=== PATIENT | female | born 1995 | race Caucasian/White ===

== ENCOUNTER 2016-12-05 23:31 | Outpatient (CLI) | payer MEDICAID ==
[~2016-12-05] VITALS: Ht 162.6 cm; Wt 87.0 kg
[~2016-12-05 23:31] MED LIST: PRENATAL 1+1)(P1 TAB PO; TUMS200 MG PO
[2016-12-06 02:35] LABS: BASOPHIL % 0.3 %; EOSINOPHIL # 0.4 K/uL (0.0-0.5); EOSINOPHIL % 3.9 %; HEMATOCRIT 34.8 % (33.0-46.0); HEMOGLOBIN 11.8 g/dL (11.0-15.0); IMMATURE GRANULOCYTE # 0.1 K/uL (0.0-0.3); IMMATURE GRANULOCYTE % 0.5 %; LYMPHOCYTE # 1.8 K/uL (0.8-4.0); LYMPHOCYTE % 16.1 %; MCH 30.2 pg (27.0-34.0); MCHC 33.9 gm/dL (32.0-36.5); NEUTROPHIL # (ANC) 7.9 K/uL (1.8-7.8); NEUTROPHIL % 70.2 %; NRBC % 0 /100WBC (0-0.00); PLATELET COUNT 251 K/uL (150-450); RBC 3.91 M/uL (3.50-5.00); RDW-CV 13.9 % (11.9-14.6); WBC 11.3 K/uL (4.0-11.0)
== END 2016-12-06 05:20 | disposition disaster alternative care site (69) ==
LOC: GOBS 23:31 → GOBM 23:31 → GOBS 23:32 → GOBM 12-06 05:20
PROVIDERS: Obstetrics & Gynecology
DX: Z34.93 Encounter for supervision of normal pregnancy, unspecified, third trimester (principal); Z91.040 Latex allergy status
CPT/HCPCS: G0463; J2001; J7120

== ENCOUNTER 2016-12-17 07:28 | Inpatient (IN) | payer MEDICAID ==
[~2016-12-17] VITALS: Ht 162.6 cm; Wt 86.0 kg
--- NOTE | ~2016-12-17 | OR ---
PATIENT'S NAME: KAYLEIGH CHÁVEZ [facility] AGE: 21 Y [address] ROOM: [place] [address] LOCATION: GOBS ADMIT DATE: 12/17/2016 OR/Procedure Report DISCHARGE DATE: FAMILY PHYSICIAN: ALDEN RITTER MD ATTENDING PHYSICIAN: Pia Pascual DATE OF PROCEDURE: 12/17/2016 PREOP DX: IUP at term, labor POSTOP DX: Same PROCEDURE: SURGEON: Pia Pascual MD EBL: 300 ML ANESTHESIA: Epidural FINDINGS: Female , APGARS 8-9, Weight 8 obs 2 oz, intact placenta with 3 vessel cord, 1st degree perineal laceration, right labial laceration INDICATION: This patient is a 21-year-old G2, P 0-0-1-0, who presented to Labor and Delivery in active labor. She had uncomplicated . She had artificial rupture of membranes. She progressed along a normal labor curve to complete. She underwent expulsive efforts for about an hour and a half. DESCRIPTION OF PROCEDURE: With expulsive efforts, the head delivered over an intact perineum. The rest of the fetus delivered. The nose and mouth were bulb suctioned. The cord was clamped and cut. The infant was handed to awaiting team. Cord blood was drawn. The placenta delivered with manual traction. Cervix, vagina, and perineum were examined. There was a right labial laceration and a first-degree perineal laceration repaired with Vicryl suture. COMPLICATIONS: None. CONDITION: Mom stable in room. Infant to nursery. PIA PASCUAL MD AJJ/modl /[id number] d: 12/17/162027 t: 12/22/16 0742, OPERATIVE SUMMARY
[2016-12-17 09:09] LABS: BASOPHIL % 0.3 %; EOSINOPHIL # 0.2 K/uL (0.0-0.5); EOSINOPHIL % 1.3 %; HEMATOCRIT 39.1 % (33.0-46.0); HEMOGLOBIN 13.2 g/dL (11.0-15.0); IMMATURE GRANULOCYTE # 0.1 K/uL (0.0-0.3); IMMATURE GRANULOCYTE % 0.5 %; LYMPHOCYTE # 1.3 K/uL (0.8-4.0); LYMPHOCYTE % 11.1 %; MCH 29.9 pg (27.0-34.0); MCHC 33.8 gm/dL (32.0-36.5); MCV 88.7 fl (83.0-98.0); MONOCYTE % 8.6 %; MPV 10.5 fl (9.4-12.4); NEUTROPHIL # (ANC) 9.4 K/uL (1.8-7.8); NEUTROPHIL % 78.2 %; NRBC % 0 /100WBC (0-0.00); PLATELET COUNT 237 K/uL (150-450); RBC 4.41 M/uL (3.50-5.00); RDW-CV 13.9 % (11.9-14.6)
[2016-12-18 05:33] LABS: BASOPHIL % 0.2 %; EOSINOPHIL # 0.3 K/uL (0.0-0.5); EOSINOPHIL % 1.7 %; HEMOGLOBIN 10.5 g/dL (11.0-15.0); IMMATURE GRANULOCYTE # 0.1 K/uL (0.0-0.3); IMMATURE GRANULOCYTE % 0.5 %; LYMPHOCYTE # 2.1 K/uL (0.8-4.0); LYMPHOCYTE % 14.5 %; MCH 30.1 pg (27.0-34.0); MONOCYTE # 1.2 K/uL (0.0-1.0); MONOCYTE % 8.1 %; MPV 11.2 fl (9.4-12.4); NEUTROPHIL # (ANC) 10.9 K/uL (1.8-7.8); NRBC % 0 /100WBC (0-0.00); RBC 3.49 M/uL (3.50-5.00); RDW-CV 14.1 % (11.9-14.6); WBC 14.6 K/uL (4.0-11.0)
[2016-12-18 05:41] LABS: HEMATOCRIT 30.7 % (33.0-46.0); MCHC 34.2 gm/dL (32.0-36.5); PLATELET COUNT 181 K/uL (150-450)
[2016-12-18] MEDS ORDERED: MOTRIN800 MG PO (11:31)
[2016-12-18] MEDS ORDERED: PERCOCET 5-3251 EACH PO (11:31)
--- NOTE | 2016-12-18 13:13 | NUR ---
[id number] Annie Krueger, RN, and I supervised the [facility] nursing students providing patient cares.
--- NOTE | 2016-12-18 16:38 | NUR ---
Met with patient and at bedside today. Introduced myself and explained my role with the CM department. They state they have all the necessary items for baby. I provided her with a list of community resources. I instructed her to call Medicaid and notify them of baby's . I also discussed signs and symptoms of post depression and left her the handout on this. They are discharging this evening. No additional needs.
== END 2016-12-18 17:30 | disposition disaster alternative care site (69) | DRG 775 ==
LOC: GOBM 07:28 → GOBS 07:28 → GOBM 07:29 → GOBS 12-18 17:30
PROVIDERS: ADMIT Obstetrics & Gynecology
PROC: 10E0XZZ Delivery of Products of Conception, External Approach (ICD-10-PCS; principal; 2016-12-17)
PROC: 0HQ9XZZ Repair Perineum Skin, External Approach (ICD-10-PCS; 2016-12-17)
DX: O48.0 Post-term pregnancy (principal); O70.0 First degree perineal laceration during delivery; Z3A.40 40 weeks gestation of pregnancy; Z37.0 Single live birth
CPT/HCPCS: J2001; J2590; J3010; J7120